=== PATIENT | female | born 2000 | race Hispanic/Latino ===

== ENCOUNTER 2021-08-11 12:51 | Emergency (ER) | payer OTHER ==
[2021-08-11] MEDS ORDERED: Ketorolac Tromethamine 30 MG/ML VIAL ONE (15:02)
[2021-08-11] MEDS ORDERED: diphenhydrAMINE 50 MG/ML VIAL ONE (15:02)
[2021-08-11] MEDS ORDERED: Metoclopramide HCl 10 MG/2 ML VIAL ONE (15:02)
== END 2021-08-11 16:43 | disposition home or self-care (01) ==
LOC: CSHERS 12:51
DX: R51.9 Headache, unspecified (principal); R29.700 NIHSS score 0; G43.909 Migraine, unspecified, not intractable, without status migrainosus
CPT/HCPCS: 96365; 96375; J1200; J1885; J2765